=== PATIENT | male | born 1950 ===

== ENCOUNTER 2021-03-15 05:42 | Day surgery (SDC) | payer OTHER ==
[~2021-03-15 05:42] MED LIST: AVAPRO150 MG PO
== END 2021-03-15 12:35 | disposition home or self-care (01) ==
LOC: CIR.AMB 05:42
PROVIDERS: ATTEND Urology
DX: R31.0 Gross hematuria (principal); I10 Essential (primary) hypertension; Z85.51 Personal history of malignant neoplasm of bladder

== ENCOUNTER 2022-01-14 06:31 | Outpatient (CLI) | payer OTHER | END 2022-01-14 07:00 | disposition home or self-care (01) | LOC: TOM 06:31 | PROVIDERS: ATTEND Urology | DX: C67.9 Malignant neoplasm of bladder, unspecified (principal) | CPT/HCPCS: 74178; Q9965 ==